=== PATIENT | female | born 1940 | race Two or more races ===

== ENCOUNTER 2024-03-06 10:01 | Emergency (ER) | payer OTHER ==
[~2024-03-06] VITALS: Ht 162.6 cm; Wt 60.0 kg
[2024-03-06 10:02] VITALS: O2SAT 99
[2024-03-06] MEDS ORDERED: NAPROXEN 375MG TABLET PO ONE (10:15)
[2024-03-06] MEDS: ACETAMINOPHEN 325MG TABLET PO ONE (11:20)
[2024-03-06] MEDS ORDERED: TOPUD PO (11:53)
[2024-03-06 13:45] VITALS: BP 142/53; PULSE 88; RESP 14; TEMP 98.2
== END 2024-03-06 13:49 | disposition home or self-care (01) ==
LOC: ER 10:01
DX: M25.462 Effusion, left knee (principal); J45.909 Unspecified asthma, uncomplicated
CPT/HCPCS: 73560; 99283